=== PATIENT | female | born 1975 | race Caucasian/White ===

== ENCOUNTER 2020-01-20 21:38 | Emergency (ER) | payer MEDICAID ==
[~2020-01-20] VITALS: Ht 162.6 cm; Wt 81.6 kg
[2020-01-20 21:46] VITALS: BP 123/90
[2020-01-20] MEDS ORDERED: DEXAMETHASONE SOD PHOSPHATE 10 MG/ML VIAL ONE (22:16)
[2020-01-20] MEDS: DEXAMETHASONE SOD PHOSPHATE 10 MG/ML VIAL IM ONE (22:20)
== END 2020-01-20 22:30 | disposition home or self-care (01) ==
LOC: ER 21:42
DX: J32.8 Other chronic sinusitis (principal); J00 Acute nasopharyngitis [common cold]; J01.00 Acute maxillary sinusitis, unspecified; J33.8 Other polyp of sinus; J45.909 Unspecified asthma, uncomplicated; Z88.2 Allergy status to sulfonamides
CPT/HCPCS: 96372; 99283; J1100

== ENCOUNTER 2020-04-17 21:38 | Emergency (ER) | payer MEDICAID ==
[~2020-04-17] VITALS: Ht 162.6 cm; Wt 77.1 kg
[2020-04-17 22:34] VITALS: BP 140/88
--- NOTE | 2020-04-17 22:39 | NUR ---
RAJWINDER BEATTY AT BEDSIDE FOR EVALUATION
[2020-04-17] MEDS ORDERED: DEXAMETHASONE SOD PHOSPHATE 10 MG/ML VIAL ONE (22:40)
[2020-04-17] MEDS ORDERED: METH4TAB3 PO (22:48)
--- NOTE | 2020-04-17 22:52 | NUR ---
Patient discharged to home in stable condition. Written and verbal after care instructions given. Patient verbalizes understanding of instruction.
[2020-04-17] MEDS ORDERED: DEXAMETHASONE SOD PHOSPHATE 4 MG/ML VIAL IM ONE (23:00)
== END 2020-04-17 22:53 | disposition home or self-care (01) ==
LOC: ER 21:41
DX: J32.8 Other chronic sinusitis (principal); J33.8 Other polyp of sinus; J45.909 Unspecified asthma, uncomplicated; F10.10 Alcohol abuse, uncomplicated; Y90.9 Presence of alcohol in blood, level not specified; Z79.899 Other long term (current) drug therapy; Z90.49 Acquired absence of other specified parts of digestive tract; Z88.2 Allergy status to sulfonamides
CPT/HCPCS: 96372; 99283; J1100

== ENCOUNTER 2022-04-09 22:19 | Emergency (ER) | payer MEDICAID ==
[~2022-04-09] VITALS: Ht 170.2 cm; Wt 68.0 kg
[~2022-04-09 22:19] MED LIST: METH4TAB3 PO
[2022-04-09 22:41] VITALS: BP 135/79
--- NOTE | 2022-04-09 22:41 | NUR ---
Patient discharged to home in stable condition. Written and verbal after care instructions given. Patient verbalizes understanding of instruction.
[2022-04-09] MEDS ORDERED: AMOX-430 PO (22:44)
[2022-04-09] MEDS ORDERED: METH4TAB3 PO (22:44)
[2022-04-09] MEDS ORDERED: DEXAMETHASONE SOD PHOSPHATE 10 MG/ML VIAL ONE (22:48)
[2022-04-09] MEDS ORDERED: DEXAMETHASONE SOD PHOSPHATE 10 MG/ML VIAL IM ONE (23:00)
== END 2022-04-09 22:56 | disposition home or self-care (01) ==
LOC: ER 22:24
DX: J32.9 Chronic sinusitis, unspecified (principal); J45.909 Unspecified asthma, uncomplicated; Z90.49 Acquired absence of other specified parts of digestive tract; Z88.2 Allergy status to sulfonamides; Z79.899 Other long term (current) drug therapy
CPT/HCPCS: 99283; 96372; J1100